=== PATIENT | female | born 1980 | race Two or more races ===

== ENCOUNTER 2017-10-06 20:32 | Emergency (ER) | payer OTHER ==
[~2017-10-06] VITALS: Ht 162.6 cm; Wt 66.7 kg
[2017-10-06] MEDS ORDERED: PRENATABS FA T1 EACH (20:47)
== END 2017-10-07 00:56 | disposition home or self-care (01) ==
LOC: ER 20:32
DX: O20.8 Other hemorrhage in early pregnancy (principal); Z34.82 Encounter for supervision of other normal pregnancy, second trimester

== ENCOUNTER 2018-08-12 16:35 | Outpatient (CLI) | payer OTHER ==
[~2018-08-12 16:35] MED LIST: PRENATABS FA T1 EACH
== END 2018-08-12 16:54 | disposition home or self-care (01) ==
LOC: RAD 16:35
DX: M54.2 Cervicalgia (principal); M54.6 Pain in thoracic spine; M75.101 Unspecified rotator cuff tear or rupture of right shoulder, not specified as traumatic

== ENCOUNTER 2018-12-21 11:19 | Outpatient (CLI) | payer OTHER | END 2018-12-21 15:00 | disposition home or self-care (01) | LOC: LAB 11:19 | DX: I82.890 Acute embolism and thrombosis of other specified veins (principal) ==

== ENCOUNTER 2019-03-20 03:39 | Emergency (ER) | payer OTHER ==
[~2019-03-20] VITALS: Ht 162.6 cm; Wt 68.0 kg
[2019-03-20] MEDS ORDERED: ENDOMETRIN100 MG (03:58)
== END 2019-03-20 07:33 | disposition home or self-care (01) ==
LOC: ER 03:39
DX: O20.0 Threatened abortion (principal)

== ENCOUNTER 2019-08-09 11:04 | Outpatient (CLI) | payer OTHER ==
[~2019-08-09 11:04] MED LIST changes: +ENDOMETRIN100 MG
== END 2019-08-09 11:45 | disposition home or self-care (01) ==
LOC: NST 11:04
PROVIDERS: ATTEND Obstetrics & Gynecology Maternal & Fetal Medicine
DX: Z34.83 Encounter for supervision of other normal pregnancy, third trimester (principal)

== ENCOUNTER 2019-08-30 09:34 | Outpatient (CLI) | payer OTHER | END 2019-08-30 10:05 | disposition home or self-care (01) | LOC: NST 09:34 | PROVIDERS: ATTEND Obstetrics & Gynecology | DX: Z34.83 Encounter for supervision of other normal pregnancy, third trimester (principal) ==

== ENCOUNTER → 2019-09-06 | Outpatient (CLI) | payer OTHER | END | disposition home or self-care (01) | LOC: NST 14:46 | PROVIDERS: ATTEND Obstetrics & Gynecology | DX: Z34.83 Encounter for supervision of other normal pregnancy, third trimester (principal) ==

== ENCOUNTER 2019-09-26 08:07 | Outpatient (CLI) | payer OTHER | END 2019-09-26 08:49 | disposition home or self-care (01) | LOC: NST 08:07 | PROVIDERS: ATTEND Obstetrics & Gynecology | DX: Z34.83 Encounter for supervision of other normal pregnancy, third trimester (principal) ==

== ENCOUNTER 2019-10-20 15:57 | Outpatient (CLI) | payer OTHER | END 2019-10-20 16:30 | disposition home or self-care (01) | LOC: NST 15:57 | PROVIDERS: ATTEND Obstetrics & Gynecology | DX: Z34.83 Encounter for supervision of other normal pregnancy, third trimester (principal) ==

== ENCOUNTER 2019-10-28 07:49 | Outpatient (CLI) | payer OTHER | END 2019-10-28 08:54 | disposition home or self-care (01) | LOC: NST 07:49 | PROVIDERS: ATTEND Obstetrics & Gynecology | DX: Z34.83 Encounter for supervision of other normal pregnancy, third trimester (principal) ==

== ENCOUNTER 2019-11-01 08:59 | Inpatient (IN) | payer OTHER ==
[~2019-11-01] VITALS: Ht 162.6 cm; Wt 78.5 kg
[2019-11-01] MEDS ORDERED: LOVENOX40 MG/0.4 SUBCUTANEO (09:41)
[2019-11-01] MEDS ORDERED: [UNRECOGNIZED DRUG - OTHER] MC (09:42)
[2019-11-01] MEDS ORDERED: PROGESTERONE200 MG PO (09:42)
== END 2019-11-03 11:50 | DRG 807 ==
LOC: LDR 08:59 → SURG-SUITE 08:59 → OB/GYN 11-05 10:14
PROVIDERS: ADMIT Obstetrics & Gynecology; ATTEND Obstetrics & Gynecology
PROC: 10E0XZZ Delivery of Products of Conception, External Approach (ICD-10-PCS; principal; 2019-11-01)
PROC: 0UQG7ZZ Repair Vagina, Via Natural or Artificial Opening (ICD-10-PCS; 2019-11-01)
PROC: 4A0HXFZ Measurement of Products of Conception, Cardiac Rhythm, External Approach (ICD-10-PCS; 2019-11-01)
DX: O71.4 Obstetric high vaginal laceration alone (principal); Z37.0 Single live birth; Z3A.39 39 weeks gestation of pregnancy

== ENCOUNTER 2020-08-09 07:40 | Outpatient (CLI) | payer OTHER ==
[~2020-08-09 07:40] MED LIST changes: +LOVENOX40 MG/0.4 SUBCUTANEO; +PROGESTERONE200 MG PO; +[UNRECOGNIZED DRUG - OTHER] MC
== END 2020-08-09 07:55 | disposition home or self-care (01) ==
LOC: SONOGRAMA 07:40
PROVIDERS: ATTEND Specialist
DX: Z87.19 Personal history of other diseases of the digestive system (principal)

== ENCOUNTER 2024-03-11 05:52 | Day surgery (SDC) | payer OTHER ==
[2024-03-10 09:20] VITALS: BP 103/69
[~2024-03-11] VITALS: Ht 162.6 cm; Wt 68.0 kg
[2024-03-11] MEDS ORDERED: CLINDAMYCIN PHOSPHATE 150 MG/ML (900mg) ONE (08:30)
[2024-03-11] MEDS ORDERED: GENTAMICIN SULFATE 40 MG/ML VIAL ONE (09:00)
[2024-03-11] MEDS ORDERED: POVIDONE-IODINE 118 ML BOTT TOP ONE ×3 (09:01→13:09)
[2024-03-11] MEDS ORDERED: CEFAZOLIN SODIUM 1,000 MG VIAL ONE (09:01)
[2024-03-11] MEDS ORDERED: POVIDONE-IODINE SCRUB 118 ML BOTT TOP ONE (09:01)
[2024-03-11] MEDS ORDERED: CHLORHEXIDINE GLUCONATE 120 ML BOTTLE TOP ONE (09:10)
[2024-03-11] MEDS ORDERED: BUPIVACAINE HCL/MPF 0.5% 30ML VIAL ONE (10:42)
[2024-03-11] MEDS ORDERED: MORPHINE SULFATE 4 MG/ML VIAL IV ONE (15:55)
== END 2024-03-11 16:40 | disposition home or self-care (01) ==
LOC: U 05:52 → CIR.AMB 05:52
PROVIDERS: ATTEND Surgery
DX: C50.412 Malignant neoplasm of upper-outer quadrant of left female breast (principal); D48.61 Neoplasm of uncertain behavior of right breast; C77.3 Secondary and unspecified malignant neoplasm of axilla and upper limb lymph nodes; N60.91 Unspecified benign mammary dysplasia of right breast; N60.21 Fibroadenosis of right breast; Z90.13 Acquired absence of bilateral breasts and nipples